=== PATIENT | male | born 2005 | race Caucasian/White ===

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

== ENCOUNTER 2023-12-15 15:16 | Emergency (ER) | payer BC, OTHER ==
[~2023-12-15] VITALS: Ht 157.4 cm; Wt 109.3 kg
[2023-12-15 16:01] LABS: HEMATOCRIT 43.3 % (42.0-52.0); MEAN CORPUSCULAR HGB 28.2 pg (27.0-31.0); MEAN CORPUSCULAR HGB CONC 34.4 g/dl (33.0-37.0); MEAN PLATELET VOLUME 12.1 fl (9.6-12.3); PLATELET COUNT AUTOMATED 307 10*3/uL (130-400); RED BLOOD COUNT 5.28 10*6/uL (4.50-5.90); RED CELL DISTRI WIDTH 13.4 % (0-14.5); WHITE BLOOD COUNT 11.8 10*3/uL (4.8-10.8)
[2023-12-15 16:02] LABS: BILIRUBIN Negative (Negative); BLOOD Negative (Negative); CLARITY Clear (Clear); COLOR Yellow (Yellow); GLUCOSE Negative (Negative); KETONE Trace (Negative); LEUKO ESTERASE Negative (Negative); NITRITE Negative (Negative); PH 7.5 (4.5-8.0); SPECIFIC GRAVITY <= 1.005 (1.001-1.030)
[2023-12-15 16:08] LABS: URINE AMPHETAMINES Negative (1000ng/ml); URINE BARBITURATES Negative (200ng/ml); URINE BENZODIAZEPINES Negative (200ng/ml); URINE CANNABINOIDS (THC) Positive (50ng/ml); URINE COCAINE Negative (300ng/ml); URINE METHADONE Negative (300ng/ml); URINE OPIATES Negative (300ng/ml); URINE PHENCYCLIDINE Negative (25ng/ml)
[2023-12-15 16:09] LABS: WBC 0-2 wbc/hpf (0-5)
[2023-12-15 16:09] LABS: MANUAL DIFF REFLEX YES
[2023-12-15] MEDS ORDERED: hydrOXYzine pamoate 25 MG CAP PO ONE (16:20)
[2023-12-15 16:24] LABS: CHLORIDE 107 mmol/L (98-107); POTASSIUM 3.4 mmol/L (3.4-5.1)
[2023-12-15 16:27] LABS: BUN < 5 mg/dl (9-23); ETHYL ALCOHOL < 3.0 mg/dl (<3)
[2023-12-15 16:36] LABS: BASOPHILS 3 % (0-1); OVALOCYTES FEW; PLATELET SUFFICIENCY NORMAL (NORMAL); SCHISTOCYTES FEW; TOTAL CELLS COUNTED 100 #CELLS
== END 2023-12-15 16:48 | disposition home or self-care (01) ==
LOC: ED 15:16
PROVIDERS: Physician Assistant Medical
DX: F41.9 Anxiety disorder, unspecified (principal)